=== PATIENT | female | born 1960 | race Caucasian/White ===

== ENCOUNTER 2024-04-07 15:32 | Emergency (ER) | payer BC, SELFPAY ==
--- NOTE | 2024-04-07 15:35 | ED_ITS ---
HPI - General Adult General Stated complaint: SOB/Body Pains Time Seen by Provider: 04/07/24 15:42 Source: patient, RN notes reviewed and old records reviewed Mode of arrival: ambulatory Limitations: no limitations History of Present Illness HPI narrative: 63-year-old female presents to the [facility] with complaints body pain, shortness of breath, left scapular pain that started earlier this week. Patient denies fevers. Reports increased edema, shortness of breath. Trouble with shortness of breath especially when she lays flat. Has gradually got worse. Reports that she did have a cardiac workup several months ago at an outside facility Onset (ago): day(s) (5) Treatments prior to arrival: other (Sudafed) Related Data Home Medications ?Medication ?Instructions ?Recorded ?Confirmed ?Last Taken ?Type allopurinol 300 mg tablet mg 04/07/24 Unknown History ergocalciferol (vitamin D2) 1,250 04/07/24 Unknown History mcg (50,000 unit) capsule hydralazine 50 mg tablet mg 04/07/24 Unknown History hydrochlorothiazide 25 mg tablet mg 04/07/24 Unknown History metoprolol succinate 100 mg mg PO 04/07/24 Unknown History tablet,extended release 24 hr rosuvastatin 10 mg tablet mg 04/07/24 Unknown History tirzepatide (weight loss) 2.5 mg subcut 04/07/24 Unknown History mg/0.5 mL subcutaneous pen injector (Zepbound) Review of Systems Review of Systems: All systems reviewed & are unremarkable except as noted in HPI and below Constitutional: Constitutional: Reports as per HPI and Reports body ache(s) ENT: Reports system reviewed and no additional complaints, except as documented Cardiovascular: Cardiovascular: Reports as per HPI, Denies chest pain, Reports leg edema (Bilateral), Reports dyspnea, Reports dyspnea on exertion, Reports orthopnea and Reports other (Left scapular pain) Respiratory: Respiratory: Denies chest congestion, Reports cough and Reports dyspnea Musculoskeletal: Musculoskeletal: Reports no additional musculoskeletal complaints Integumentary/Breasts: Skin/Breast: Reports system reviewed and no additional complaints, except as docu [facility] Past Medical History Medical History History of gout History of high blood pressure High cholesterol Comments At the time of my signature, I reviewed and agree with the nursing past medical, surgical, social, and family history. There is no relevant family history pertinent to the patient complaint. Exam Const: General: cooperative, well developed, alert, anxious, ill appearing acutely and chronically, well nourished and obese Nutritional Appearance: well nourished and obese Orientation/consciousness: patient oriented x3 Limitations: no limitations HENMT: Head: normal to inspection Eyes: General: appearance normal, both eyes and all related structures Alignment and Position: alignment normal Neck: Neck: normal visual inspection, full ROM, no lymphadenopathy and no meningeal signs Chest: Chest palpation & inspection: normal inspection of the chest Resp: Effort & Inspection: normal respiratory effort and able to speak in complete sentences Auscultation: clear to auscultation bilaterally, no crackles, no rales, no rhonchi, no wheezes and diminished lung sounds bilateral in the lower lung michele Cardio: Rate: tachycardic Other: Bilateral lower extremity edema Skin: General skin exam: normal color and no rashes or lesions noted Neuro: General: patient oriented x3, gait normal, moves all extremities and no meningeal signs Cognition (Neuro): normal cognition Speech: normal speech Gait exam (Neuro): Normal gait present Extrem: General: normal to inspection, full ROM, capillary refill normal and normal gait Psych: Appearance: grossly normal and well kempt Mental Status: mental status grossly normal Speech and movement: Normal speech and movement present and Clear speech present Affect: normal affect Attitude: cooperative Course Course Level of Care: Express Care Visit Vital Signs Vital signs: Vital Signs Temperature 99.5 F 04/07/24 15:41 Pulse Rate 122 H 04/07/24 15:41 Respiratory Rate 04/07/24 15:41 Blood Pressure 152/92 H 04/07/24 15:41 Pulse Oximetry 95 04/07/24 15:41 Oxygen Delivery Room Air 04/07/24 15:41 Temperature 99.5 F 04/07/24 15:41 Pulse Rate 122 H 04/07/24 15:41 Respiratory Rate 04/07/24 15:41 Blood Pressure 152/92 H 04/07/24 15:41 Pulse Oximetry 95 04/07/24 15:41 Oxygen Delivery Room Air 04/07/24 15:41 Reviewed Transfer Transfered to: [facility] (Per patient request) Transportation: Other (POV patient declined EMS) Transfer rationale: Patient with left scapular pain, abnormal EKG, edema, shortness of breath especially when laying down Sending to ER to rule out congestive heart failure, heart issues Accepting physician: Spoke with Helen DAVIS, Dr. Fofana. Medical Decision Making MDM Narrative Medical decision making narrative: Patient presents with increasing shortness of breath, unable to lay flat, edema, left scapular pain Sending for higher level care rule out congestive heart failure versus pneumonia versus cardiac issues Transfer instructions reviewed with patient to go directly to the emergency room. She declined EMS. Will have her drive her. All questions have been answered, and the patient deny any further questions Some parts of this dictation were generated by voice recognition software and may contain typographical and/or grammatical inaccuracies. Differential Diagnosis Differential Diagnosis: CHF, cardiac pneumonia RSV flu, COVID, Medical Records Medical records reviewed: Yes I reviewed the external patient's medical records. Vital Signs Vital Signs: Vital Signs Temperature 99.5 F 04/07/24 15:41 Pulse Rate 122 H 04/07/24 15:41 Respiratory Rate 20 04/07/24 15:41 Blood Pressure 152/92 H 04/07/24 15:41 Pulse Oximetry 95 04/07/24 15:41 Oxygen Delivery Room Air 04/07/24 15:41 Temperature 99.5 F 04/07/24 15:41 Pulse Rate 122 H 04/07/24 15:41 Respiratory Rate 20 04/07/24 15:41 Blood Pressure 152/92 H 04/07/24 15:41 Pulse Oximetry 95 04/07/24 15:41 Oxygen Delivery Room Air 04/07/24 15:41 Reviewed Lab Data Lab results reviewed: Yes I reviewed the patient's lab results. Labs: Reviewed ECG Data EKG #1: Attestation: I personally reviewed and interpreted this ECG as follows: ECG completion date: 04/07/24 ECG completion time: 15:51 Prior ECG tracings: not available for review Interpretation: Sinus tachycardia. Left ventricle hypertrophy with ST- T change abnormal EKG Ventricle rate of 121, NC interval 138, QRS duration 109. Critical Care Time Critical Care Time Critical Care Time: No Discharge Plan Discharge Clinical Impression: Shortness of breath, Body aches, Edema Patient Disposition: Acute Care Hospital Condition: Guarded Prognosis Patient Language: Lithuanian Prescriptions: No Action metoprolol succinate 100 mg tablet extended release 24 hr PO allopurinol 300 mg tablet hydralazine 50 mg tablet hydrochlorothiazide 25 mg tablet ergocalciferol (vitamin D2) 1,250 mcg (50,000 unit) capsule rosuvastatin 10 mg tablet Zepbound 2.5 mg/0.5 mL pen injector SUBCUT Follow-up/Referrals: Jenn,Ted Caputo MD [Primary Care Provider] -
[2024-04-07 15:41] VITALS: BP 152/92; PULSE 122; RESP 20; TEMP 37.5; O2SAT 95
--- NOTE | 2024-04-07 15:44 | ECG_ITS ---
Test Date: 2024-04-07 15:51:50 Measurements Intervals [facility] Rate: 121 P: 26 ID: [id number] QRS: -24 QRSD: 109 T: 77 QT: 313 QTc: 445 Interpretive Statements SINUS TACHYCARDIA BORDERLINE LEFT AXIS DEVIATION [QRS AXIS < -20] LEFT VENTRICULAR HYPERTROPHY AND ST-T CHANGE [VOLTAGE CRITERIA PLUS ST/T ABNORMALITY] No previous ECG available for comparison Electronically Signed On 04-08-2024 16:43:37 IT SYSTEMS MANAGER by Flor Sims M.D.
== END 2024-04-07 15:55 | disposition short-term general hospital (02) ==
PROVIDERS: Emergency Provider Nurse Practitioner; PCP Internal Medicine
DX: R06.02 Shortness of breath (principal); R52 Pain, unspecified; R60.9 Edema, unspecified; R94.31 Abnormal electrocardiogram [ECG] [EKG]; I10 Essential (primary) hypertension; E78.00 Pure hypercholesterolemia, unspecified; M10.9 Gout, unspecified
CPT/HCPCS: 93005; 99203; G0463